=== PATIENT | female | born 1995 | race American Indian/Alaskan Native ===

== ENCOUNTER 2021-01-08 16:26 | Emergency (ER) | payer SELFPAY ==
--- NOTE | 2021-01-08 18:35 | Event Note ---
ED Screening Note Date of service: 01/08/21 Time: 18:33 ED Screening Note: 25-year-old female patient with history of pseudotumor cerebri presents to the emergency department with complaints of progressively worsening headache, neck stiffness, blurred vision, dizziness, and tremors for the last few weeks. Patient states she feels as though her intracranial pressure may be elevated. She recently relocated to the area and is not currently under the care of a neurologist. No recent trauma. No fever or rash. General: Awake, appropriately interactive, no acute distress. Neck: Supple. Full range of motion intact. Cardiovascular: Normal peripheral perfusion. Pulmonary: No respiratory distress. Patient is speaking normally without use of accessory muscles. Skin: No apparent rashes or lesions. Neurological: No facial asymmetry. Speech is clear. Follows commands. Patient is alert and oriented. Musculoskeletal: Moves all four extremities spontaneously with normal range of motion. Psych: Cooperative. Appropriate mood and affect. Decision to obtain imaging and/or perform lumbar puncture deferred to additional ED providers following full history and comprehensive neurological assessment. I have greeted and performed a focused rapid initial assessment of this patient. A comprehensive ED assessment and evaluation of the patient, analysis of all test results, and completion of the medical decision-making process will be conducted by additional ED providers. This initial assessment/diagnostic orders/clinical plan/treatment(s) is/are subject to change based on patients health status, clinical progression and re-assessment. Further treatment and workup at subsequent clinical provider's discretion. Patient/guardian urged not to elope from the ED as their condition may be serious if not clinically assessed and managed.
--- NOTE | 2021-01-08 21:49 | Emergency Department Report ---
ED Headache HPI - General Chief Complaint: Headache Stated Complaint: WEAK DIZZY Time Seen by Provider: 01/08/21 21:19 - History of Present Illness Initial Comments: 25-year-old female, pseudotumor cerebri, presents to ED with headache x2 months. Patient states she was diagnosed with pseudotumor while living in [place]. States at that time she was placed on Diamox. Patient states she moved away from [place] to another [facility] and saw a neurologist there who did not believe that she actually had pseudotumor cerebri; thought her symptoms were due to migraine headaches. Patient was not given any medication from that neurologist. Patient then moved back to [place] where she was supposed to follow-up with a neuro-training intern, but was unable to. Patient recently moved to the [place] area 1 month ago. He has not established any medical care here in the city. She reports that she has been having global headaches over the last 2 months, with associated neck pain. She denies any fever. She reports nausea, no vomiting. Patient states over the last couple weeks she has been experiencing tremors in her hands. She states that she is unsure if she is experiencing any blurred vision, because she wears glasses and she believes that it is time for new prescription. Will refer to blurred vision, patient states when she initially tries to read something, her eyes do not focus immediately, but then they do eventually. She denies any double vision or vision loss. Patient states she has been taken [id number] medication without relief. Timing/Duration: other (2 months) Quality: pressure Recent Head Trauma: chronic headaches Modifying Factors: worse with: exposure to light Associated Symptoms: nausea/vomiting, stiff neck. denies: confusion, fever/chills Allergies/Adverse Reactions: Allergies No Known Allergies Allergy (Verified 01/08/21 22:06) Home Medications: Ambulatory Orders acetaZOLAMIDE [Acetazolamide ER] 500 mg PO BID #30 capsule.er 01/08/21 ED Review of Systems ROS: Stated complaint: WEAK DIZZY Other details as noted in HPI Comment: All other systems reviewed and negative Constitutional: denies: chills, fever Respiratory: denies: shortness of breath Cardiovascular: denies: chest pain Gastrointestinal: nausea. denies: vomiting Neurological: headache. denies: weakness, numbness, paresthesias ED Past Medical Hx - Past Medical History Previous Medical History?: Yes Hx Asthma: Yes Additional medical history: fibromyalgia - Surgical History Past Surgical History?: No - Medications Home Medications: Home Medications Medication Instructions Recorded Confirmed Last Taken Type acetaZOLAMIDE [Acetazolamide ER] 500 mg PO BID #30 capsule.er 01/08/21 Unknown Rx ED Physical Exam - General Limitations: No Limitations General appearance: alert, in no apparent distress - Head Head exam: Present: atraumatic, normocephalic - Eye Eye exam: Present: normal appearance, PERRL, EOMI, other (No obvious papilledema on my exam) - ENT ENT exam: Present: mucous membranes moist - Neck Neck exam: Present: normal inspection, full ROM. Absent: meningismus - Respiratory Respiratory exam: Present: normal lung sounds bilaterally. Absent: respiratory distress - Cardiovascular Cardiovascular Exam: Present: regular rate, normal rhythm - GI/Abdominal GI/Abdominal exam: Present: soft. Absent: distended, tenderness - Extremities Exam Extremities exam: Present: normal inspection - Neurological Exam Neurological exam: Present: alert, oriented X3, CN II-XII intact, normal gait. Absent: motor sensory deficit - Psychiatric Psychiatric exam: Present: normal affect, normal mood - Skin Skin exam: Present: warm, dry, intact, normal color ED Course Vital Signs 01/08/21 01/08/21 01/08/21 17:26 21:00 23:34 Temperature 98.5 F Pulse Rate 86 84 Respiratory 16 16 16 Rate Blood Pressure 123/85 122/78 [Right] O2 Sat by Pulse 99 100 Oximetry ED Medical Decision Making - Lab Data Result diagrams: 01/08/21 22:21 01/08/21 22:21 - Radiology Data Radiology results: report reviewed, image reviewed - Medical Decision Making 25-year-old female with history of pseudotumor cerebri presents to ED with 2-mo nth history of headache. Neuro exam is normal. Patient reports some issues with her eyes focusing on words when she immediately looks at a page, however this quickly resolves. She denies any overtly blurry vision. Denies any double vision. CT head negative for any acute findings. Patient will a liter bolus of IV fluids, Toradol, and Diamox. Patient feeling much better following medication administration. Will be discharged at this time with prescription for Diamox. Patient advised to follow-up with neurology. Return precautions given. Critical care attestation.: If time is entered above; I have spent that time in minutes in the direct care of this critically ill patient, excluding procedure time. ED Disposition Clinical Impression: Headache Disposition: DC-01 TO HOME OR SELFCARE Is pt being admited?: No Condition: Stable Instructions: Migraine Headache, [id number], Idiopathic Intracranial Hypertension Prescriptions: acetaZOLAMIDE [Acetazolamide ER] 500 mg PO BID #30 capsule.er Referrals: PACO YEAGER MD [Referring] - [facility] [Outside] - [facility] [Provider Group] - [facility] [Outside] - [facility] Time of Disposition: 23:54
[2021-01-08] MEDS ORDERED: SODIUM CHLORIDE 0.9% 1000 ML 1,000 ML IV ONE (22:04)
[2021-01-08] MEDS ORDERED: KETOROLAC 30 MG/1 ML INJ IV ONE (22:04)
[2021-01-08] MEDS ORDERED: acetaZOLAMIDE 250 MG TAB PO ONE (22:04)
--- NOTE | 2021-01-08 22:21 | Cat Scan Report ---
CT HEAD WITHOUT CONTRAST INDICATION: headache. TECHNIQUE: All CT scans at this location are performed using CT dose reduction for ALARA by means of automated e xposure control. COMPARISON: None available. FINDINGS: HEMORRHAGE: None. EXTRA-AXIAL SPACES: Normal in size and morphology for the patient's age. VENTRICULAR SYSTEM: Normal in size and morphology for the patient's age. BRAIN PARENCHYMA: No acute findings. MIDLINE SHIFT OR HERNIATION: None. ORBITS: Normal as visualized. SOFT TISSUES OF HEAD: Normal. CALVARIUM: Normal. VISUALIZED PARANASAL SINUSES AND MASTOID AIR CELLS: Clear. ADDITIONAL FINDINGS: None. IMPRESSION: 1. No acute intracranial abnormality. Signer Name: Clovis Mendoza MD Signed: 01/08/2021 10:17 PM Workstation Name: [id number]
[2021-01-08 22:37] LABS: Hematocrit 34.4 % (30.3-42.9); Hemoglobin 11.2 gm/dl (10.1-14.3); Mean Corpuscular HGB Conc 33 % (30-34); Mean Corpuscular Volume 82 fl (79-97); Platelet Count 384 K/mm3 (140-440); Red Blood Count 4.18 M/mm3 (3.65-5.03); Red Cell Distribution Width 17.2 % (13.2-15.2)
[2021-01-08 22:59] LABS: Blood Urea Nitrogen 7 mg/dL (7-17); Calcium 8.8 mg/dL (8.4-10.2); Hemolysis Index 2
[2021-01-08 23:07] LABS: BUN/Creatinine Ratio 14
[2021-01-08 23:34] VITALS: BP 122/78
[2021-01-09 01:23] LABS: Anisocytosis 1+; Band Neutrophils # (Manual) 0.1 K/mm3; Total Cells Counted 100
[2021-01-09 01:24] LABS: Platelet Estimate Consistent w Auto
== END 2021-01-08 23:50 | disposition home or self-care (01) ==
LOC: ED 16:26
DX: R51.9 Headache, unspecified (principal); M79.7 Fibromyalgia; J45.909 Unspecified asthma, uncomplicated
CPT/HCPCS: 36415; 70450; 80048; 84703; 85007; 85025; 96361; 96374; 99284; J1885; J7030

== ENCOUNTER 2021-06-25 12:35 | Emergency (ER) | payer SELFPAY ==
[2021-06-25 12:52] VITALS: BP 121/88
--- NOTE | 2021-06-25 13:24 | Emergency Department Report ---
ED General Adult HPI - General Chief complaint: Eye Problems Stated complaint: EYE PROBLEMS Time Seen by Provider: 06/25/21 12:58 Source: patient Mode of arrival: Ambulatory Limitations: No Limitations - History of Present Illness Initial comments: 26 year old female with pmhx of IC HTN presents to ED requesting refill on her Diamox and complaining of headache, eye pain and decreased hearing. Patient states has been off her Diamox for about a month and a half. She states that she currently does not have a neurologist nor PCP due to lack of insurance. She states that she moved here a few months ago and has been working on trying to get insurance. She states that she has been having of the symptoms she has been out of her medications. She did see an toll repairer central office this past Sunday to get her glasses prescription changed, but during the visit she mentioned about her symptoms and she said that they dilated her eye and he told her that her optic nerve appeared swollen and it could be related to her IC hypertension. She reports mild blurry vision but otherwise no vision loss or any other vision changes. She denies any dizziness, difficulty walking, neck pain, fever, chills, focal weakness, numbness, tingling or any additional symptoms at this time. Patient states that back home if her IC HTN is high she would go to ED to get LP done. Complaint: Out of Diamox - hx IC HTN - VERAS/decrease vision/eye pain -: days(s) - Related Data Previous Rx's Medication Instructions Recorded Last Taken Type acetaZOLAMIDE [Acetazolamide ER] 500 mg PO BID #30 capsule.er 01/08/21 Unknown Rx acetaZOLAMIDE [Diamox TAB] 500 mg PO DAILY #30 tablet 06/25/21 Unknown Rx Allergies Allergy/AdvReac Type Severity Reaction Status Date / Time No Known Allergies Allergy Verified 01/08/21 22:06 ED Review of Systems ROS: Stated complaint: EYE PROBLEMS Other details as noted in HPI Comment: All other systems reviewed and negative Constitutional: denies: chills, fever Eyes: other (eye pain ). denies: eye pain, eye discharge, vision change ENT: other (decrease hearing). denies: ear pain, throat pain, dental pain, hearing loss, epistaxis Respiratory: denies: cough, shortness of breath, SOB with exertion, SOB at rest, wheezing Cardiovascular: denies: chest pain, palpitations, dyspnea on exertion, edema, syncope, paroxysmal nocturnal dyspnea Gastrointestinal: denies: abdominal pain, nausea, diarrhea, constipation, hematemesis, melena, hematochezia Genitourinary: denies: urgency, dysuria, frequency, hematuria, discharge, abnormal menses, dyspareunia Neurological: headache. denies: weakness, paresthesias, abnormal gait, vertigo Psychiatric: denies: anxiety, depression, auditory hallucinations, visual hallucinations, homicidal thoughts, suicidal thoughts Hematological/Lymphatic: denies: easy bleeding, easy bruising, swollen glands ED Past Medical Hx - Past Medical History Hx Asthma: Yes Additional medical history: fibromyalgia - Medications Home Medications: Home Medications Medication Instructions Recorded Confirmed Last Taken Type acetaZOLAMIDE [Acetazolamide ER] 500 mg PO BID #30 capsule.er 01/08/21 Unknown Rx acetaZOLAMIDE [Diamox TAB] 500 mg PO DAILY #30 tablet 06/25/21 Unknown Rx ED Physical Exam - General Limitations: No Limitations General appearance: alert, in no apparent distress - Head Head exam: Present: atraumatic, normocephalic, normal inspection - Eye Eye exam: Present: normal appearance, PERRL, EOMI Pupils: Present: normal accommodation - ENT ENT exam: Present: normal exam, mucous membranes moist, TM's normal bilaterally - Neck Neck exam: Present: normal inspection, full ROM. Absent: tenderness, meningismus - Respiratory Respiratory exam: Present: normal lung sounds bilaterally. Absent: respiratory distress, wheezes, rales, rhonchi - Cardiovascular Cardiovascular Exam: Present: regular rate, normal rhythm, normal heart sounds - Neurological Exam Neurological exam: Present: alert, oriented X3, CN II-XII intact, normal gait. Absent: motor sensory deficit - Psychiatric Psychiatric exam: Present: normal affect, normal mood - Skin Skin exam: Present: intact ED Course Vital Signs 06/25/21 12:40 Temperature 98.5 F Pulse Rate 86 Respiratory 18 Rate Blood Pressure 121/88 O2 Sat by Pulse 98 Oximetry ED Medical Decision Making - Medical Decision Making 26 year old female with pmhx of IC HTN presents to ED requesting refill on her Diamox and complaining of headache, eye pain and decreased hearing. Patient states has been off her Diamox for about a month and a half. She states that she currently does not have a neurologist nor PCP due to lack of insurance. She states that she moved here a few months ago and has been working on trying to get insurance. She states that she has been having of the symptoms she has been out of her medications. She did see an toll repairer central office this past Sunday to get her glasses prescription changed, but during the visit she mentioned about her symptoms and she said that they dilated her eye and he told her that her optic nerve appeared swollen and it could be related to her IC hypertension. She reports mild blurry vision but otherwise no vision loss or any other vision changes. She denies any dizziness, difficulty walking, neck pain, fever, chills, focal weakness, numbness, tingling or any additional symptoms at this time. Patient states that back home if her IC HTN is high she would go to ED to get LP done. 1339: Patient is awake, alert and oriented x 3. She has no neuro deficits on exam. She ambulates with normal gait. Her overall PE is unremarkable. Her VS stable. Discussed case with Dr Lester who also saw and evaluated patient. Agree that at this time there is no indication for LP or any other emergent intervention or neurologist consult at this time. Recommend just refilling patient's Diamox and given patient referral to local neurologist. Discussed recommendations with patient. She expressed understanding agree with plan. Patient was stable at time of discharge. Critical care attestation.: If time is entered above; I have spent that time in minutes in the direct care of this critically ill patient, excluding procedure time. ED Disposition Clinical Impression: Medication refill, History of idiopathic intracranial hypertension Disposition: HOME / SELF CARE / HOMELESS Is pt being admited?: No Does the pt Need Aspirin: No Condition: Stable Instructions: Medicine Refill at the Emergency Department, Idiopathic Intracranial Hypertension Additional Instructions: I recommend that you get your Diamox filled and start taking it today and as prescribed. It is important that you try to follow-up with the neurologist and or even the primary care doctor listed on your discharge instruction for continued refill of your Diamox and proper management of idiopathic intracranial hypertension. Return to the ER if your symptoms changes or worsens in any way. Prescriptions: acetaZOLAMIDE [Diamox TAB] 500 mg PO DAILY #30 tablet Referrals: PACO YEAGER MD [Referring] - 3-5 Days CRIS YOUNG MD [Staff Physician] - 3-5 Days [facility] [Provider Group] - 3-5 Days Time of Disposition: 13:30
== END 2021-06-25 13:39 | disposition home or self-care (01) ==
LOC: ED 12:35
DX: G93.2 Benign intracranial hypertension (principal); Z76.0 Encounter for issue of repeat prescription; J45.909 Unspecified asthma, uncomplicated; M79.7 Fibromyalgia; Z79.899 Other long term (current) drug therapy
CPT/HCPCS: 99281

== ENCOUNTER 2021-09-07 19:21 | Emergency (ER) | payer SELFPAY ==
[2021-09-07 21:21] VITALS: BP 124/76
--- NOTE | 2021-09-07 23:26 | Emergency Department Report ---
ED Female HPI - General Chief complaint: Skin/Abscess/Foreign Body Stated complaint: LUMP IN VAGINA/FAINTNESS Time Seen by Provider: 09/07/21 22:41 Source: patient Mode of arrival: Ambulatory Limitations: No Limitations - History of Present Illness Initial comments: Chief complaint: I have a lump on my vagina near my urethra. HPI: Is a 26-year-old female history of fibromyalgia and pseudotumor cerebri who presents with lump on the right portion of her vagina. No previous history of abscess of the area. She denies vaginal bleeding or discharge. She denies pelvic pain. MD Complaint: other (Lump on her vagina) -: days(s) (2 to 3 days) Location: labia (In her vagina) Severity: moderate Consistency: constant Improves with: none Worsens with: other (Palpation) - Related Data Previous Rx's Medication Instructions Recorded Last Taken Type acetaZOLAMIDE [Acetazolamide ER] 500 mg PO BID #30 capsule.er 01/08/21 Unknown R x acetaZOLAMIDE [Diamox TAB] 500 mg PO DAILY #30 tablet 06/25/21 Unknown Rx Allergies Allergy/AdvReac Type Severity Reaction Status Date / Time No Known Allergies Allergy Verified 09/07/21 21:21 ED Review of Systems ROS: Stated complaint: LUMP IN VAGINA/FAINTNESS Other details as noted in HPI Constitutional: denies: chills, fever, malaise Respiratory: denies: cough, shortness of breath Gastrointestinal: denies: abdominal pain, nausea, vomiting Skin: rash, lesions ED Past Medical Hx - Past Medical History Previous Medical History?: Yes Hx Asthma: Yes Additional medical history: fibromyalgia, pseudotumor cerebri - Surgical History Past Surgical History?: Yes Additional Surgical History: Lumbar punctures - Social History Smoking Status: Never Smoker Substance Use Type: None - Medications Home Medications: Home Medications Medication Instructions Recorded Confirmed Last Taken Type acetaZOLAMIDE [Acetazolamide ER] 500 mg PO BID #30 capsule.er 01/08/21 09/07/21 Unknown Rx acetaZOLAMIDE [Diamox TAB] 500 mg PO DAILY #30 tablet 06/25/21 09/07/21 Unknown Rx ED Physical Exam - General Limitations: No Limitations General appearance: alert, in no apparent distress - Head Head exam: Present: atraumatic, normocephalic - Eye Eye exam: Present: normal appearance - ENT ENT exam: Present: mucous membranes moist - Neck Neck exam: Present: normal inspection, full ROM - Respiratory Respiratory exam: Present: normal lung sounds bilaterally. Absent: respiratory distress, wheezes, rales, rhonchi - Cardiovascular Cardiovascular Exam: Present: regular rate, normal rhythm. Absent: systolic mu rmur, diastolic murmur, rubs, gallop - GI/Abdominal GI/Abdominal exam: Present: soft, normal bowel sounds. Absent: distended, tenderness, guarding, rebound - External exam: Present: erythema, swelling, other (3 cm Bartholin's gland abscess right-sided active vaginal introitus) - Extremities Exam Extremities exam: Present: normal inspection - Neurological Exam Neurological exam: Present: alert, oriented X3 - Psychiatric Psychiatric exam: Present: normal affect, normal mood - Skin Skin exam: Present: warm, dry, intact, normal color. Absent: rash ED Course Vital Signs 09/07/21 09/07/21 19:59 21:19 Temperature 98.9 F 97.9 F Pulse Rate 94 H 69 Respiratory 18 18 Rate Blood Pressure 133/90 Blood Pressure 124/76 [Left] O2 Sat by Pulse 97 99 Oximetry - I & D Right Genitals Type of Procedure: Simple Site: Right vagina: Blade Size: 11 Progress: Verbal informed consent explained the risk potential benefits of incision and drainage Word catheter insertion. 3 mL 1% lidocaine injected with 26-gauge needle. 7 mm incision made with #11 blade. Copious amount of pus expressed, approximately 10 mm in volume. Tissue spreaders were used to break up loculations. A Word catheter inserted. 5 mL of normal saline used to inflate balloon with extension tip on flush syringe. ED Medical Decision Making - Medical Decision Making Bartholin's glands abscess right-sided with incision and drainage, Word catheter insertion. Patient understands to keep the Word catheter in place for 4 weeks. Refer to healthcare administrator. She is welcome to return to the ER for removal. Critical care attestation.: If time is entered above; I have spent that time in minutes in the direct care of this critically ill patient, excluding procedure time. ED Disposition Clinical Impression: Bartholin's gland abscess Disposition: HOME / SELF CARE / HOMELESS Is pt being admited?: No Does the pt Need Aspirin: No Condition: Stable Instructions: Bartholin's Cyst, [id number] Referrals: [facility], MD [Primary Care Provider] - 3-5 Days WONG QUINTANA MD [Staff Physician] - 3-5 Days
== END 2021-09-07 23:54 | disposition home or self-care (01) ==
LOC: ED 19:21
DX: N75.1 Abscess of Bartholin's gland (principal)
CPT/HCPCS: 99283